=== PATIENT | female | born 1960 | race Hispanic/Latino ===

== ENCOUNTER 2017-06-26 13:41 | Outpatient (CLI) | payer BC | END 2017-06-26 13:42 | disposition home or self-care (01) | LOC: BICBD 13:41 | PROVIDERS: ATTEND Internal Medicine Rheumatology | DX: Z13.820 Encounter for screening for osteoporosis (principal) | CPT/HCPCS: 77080 ==

== ENCOUNTER 2018-04-15 12:36 | Outpatient (CLI) | payer BC | END 2018-04-15 12:37 | disposition home or self-care (01) | LOC: BICMAMMO 12:36 | PROVIDERS: ATTEND Family Medicine | DX: Z12.31 Encounter for screening mammogram for malignant neoplasm of breast (principal) | CPT/HCPCS: 77063; 77067 ==

== ENCOUNTER 2018-04-16 07:24 | Day surgery (SDC) | payer BC ==
[2018-04-15 12:20] VITALS: BMI 27.8
[2018-04-16 08:26] LABS: INR-International Normal Ratio 0.9; PTT 27.2 SEC (22.9-36.1); Prothrombin Time 12.7 SEC (12.0-14.7)
[2018-04-16] MEDS ORDERED: Midazolam HCl 2 mg/2 ml Vial ONE (09:03)
[2018-04-16] MEDS ORDERED: Lidocaine 1% PF 5 ML VIAL ONE (09:04)
[2018-04-16] MEDS ORDERED: Sodium Bicarbonate 2.5 MEQ/5 ML VIAL ONE (09:04)
[2018-04-16] MEDS ORDERED: Fentanyl 100 MCG/2 ML VIAL ONE (09:04)
--- NOTE | 2018-04-16 11:42 | ULT ---
ULTRASOUND GUIDED HEPATIC BIOPSY: Clinical history: Alkaline phosphonate elevation, abnormal LFTs, history of abdominal pain. PROCEDURE: Informed consent was obtained. Patient was escorted to the procedural suite and placed in a supine po sition. The liver was imaged sonographically and a biopsy approach was planned. A substernal approach was performed after standard sterile prepping and draping and topical anesthesia was achieved. The p atient was administered conscious sedation by the radiology nurse Oksana Bob, and monitored in st able condition throughout the duration of the procedure. Conscious sedation time: 45 minutes of conscious sedation was performed and monitored during the proc edure. Using a standard biopsy kit (18 gauge) 2 core specimens of the left hepatic lobe were acquired under real-time sonography without complication. Patient tolerated the procedure well. Post procedural imag ing reveals no evidence of unexpected finding. Patient was transferred to radiology holding and monit ored in stable condition prior to discharge with a family member. IMPRESSION: Technically successful ultrasound guided hepatic biopsy. Biology results are pending. POS: [facility]
[2018-04-16 12:14] VITALS: BP 124/69; TEMP 97.2
== END 2018-04-16 11:10 | disposition home or self-care (01) ==
LOC: ULT 07:24
PROVIDERS: ATTEND Internal Medicine
PROC: 0FB23ZX Excision of Left Lobe Liver, Percutaneous Approach, Diagnostic (ICD-10-PCS; principal; 2018-04-16)
DX: R74.8 Abnormal levels of other serum enzymes (principal); R94.5 Abnormal results of liver function studies; Z79.51 Long term (current) use of inhaled steroids; Z79.810 Long term (current) use of selective estrogen receptor modulators (SERMs); Z79.899 Other long term (current) drug therapy; Z88.0 Allergy status to penicillin; Z88.2 Allergy status to sulfonamides; Z88.8 Allergy status to other drugs, medicaments and biological substances
CPT/HCPCS: 47000; 76942; 85610; 85730; 88307; 88313; 88321; 90471; 90686; G0008; J2001; J2250; J3010

== ENCOUNTER 2018-06-22 11:36 | Emergency (ER) | payer BC ==
[2018-06-22 12:07] LABS: #Eosinphils 0.2 thou/uL (0.0-0.7); #Lymphocytes 2.6 thou/uL (1.20-3.40); #Monocytes 0.5 thou/uL (0.11-0.59); #Neutrophils 3.7 thou/uL (1.40-6.50); %Basophils 0.7 % (0.0-1.0); %Eosinophils 3.3 % (0.0-10.0); %Lymphocytes 36.6 % (21.0-51.0); %Monocytes 6.4 % (0.0-10.0); %Neutrophils 52.9 % (42.0-75.0); Hemoglobin 13.7 g/dL (12.0-16.0); Mean Corpuscular HGB CONC 31.6 g/dL (32.0-36.0); Mean Corpuscular Hemoglobin 29.4 pg (27.0-31.0); Platelet Count 277 thou/uL (130-400); RBC Distribution Width 12.5 % (11.5-14.5); Red Blood Cell (RBC) Count 4.65 mill/uL (4.20-5.40)
[2018-06-22 12:24] LABS: ALT (SGPT) 55 U/L (8-55); AST (SGOT) 53 U/L (5-34); Albumin 3.9 g/dL (3.5-5.0); Alkaline Phosphatase 545 U/L (40-150); Anion Gap 18 mmol/L (10-20); BUN (Urea Nitrogen) 22 mg/dL (9.8-20.1); Bilirubin, Total 0.5 mg/dL (0.2-1.2); CK (CPK) 19 U/L (29-168); Calc. Creatinine Clearance 0 mL/min (70-130); Calcium 9.6 mg/dL (7.8-10.44); Carbon Dioxide 16 mmol/L (22-29); Chloride 105 mmol/L (98-107); Estimated GFR-MDRD 65; Globulin 4.3 g/dL (2.4-3.5); Glucose 136 mg/dL (70-105); Potassium 3.7 mmol/L (3.5-5.1); Protein, Total 8.2 g/dL (6.0-8.3); Sodium 135 mmol/L (136-145)
--- NOTE | 2018-06-22 13:26 | RAD ---
PA AND LATERAL CHEST: Date: 06/22/18 HISTORY: Chest pain with shortness of breath and radiating to left arm. Dyspnea. COMPARISON: None available. FINDINGS: Cardiac silhouette and pulmonary vasculature are within normal limits. Calcified granuloma is seen in the right middle lobe. The lungs are otherwise clear. Osseous structures are intact. IMPRESSION: No acute cardiopulmonary process. POS: [facility]
== END 2018-06-22 15:15 | disposition home or self-care (01) ==
LOC: ERS 11:36
DX: R07.89 Other chest pain (principal); D64.9 Anemia, unspecified; M35.9 Systemic involvement of connective tissue, unspecified; Z79.899 Other long term (current) drug therapy
CPT/HCPCS: 36415; 71046; 80053; 82550; 84484; 85025; 93005

== ENCOUNTER 2018-06-30 15:04 | Outpatient (CLI) | payer BC ==
--- NOTE | 2018-06-30 16:05 | BD ---
BONE DENSITOMETRY USING DEXA 06/30/18 HISTORY: Postmenopausal screening for osteoporosis. Lumbar Spine: BMD (g/cm2) T-Score: Z-Score: L1 0.649 -3.1 -2.0 L2 0.681 -3.2 -2.0 L3 0.621 -4.2 -3.0 L4 0.582 -4.4 -3.1 L1-L4 0.631 -3.8 -2.6 Femoral Neck: 0.597 -2.3 -1.2 Total Femur: 0.805 -1.1 -0.3 Impression: Osteoporosis. POS: OFF
== END 2018-06-30 15:05 | disposition home or self-care (01) ==
LOC: BICMAMMO 15:04
PROVIDERS: ATTEND Internal Medicine Rheumatology
DX: M81.0 Age-related osteoporosis without current pathological fracture (principal)
CPT/HCPCS: 77080

== ENCOUNTER 2018-11-19 08:38 | Outpatient (CLI) | payer BC ==
--- NOTE | 2018-11-19 09:30 | ULT ---
ULTRASOUND ABDOMEN COMPLETE: Date: 11/19/18 INDICATION: History of cirrhosis. TECHNIQUE: [place]te-scale ultrasound evaluation of the liver, gallbladder, spleen, pancreas, common bile duct, kidne ys, abdominal aorta, and inferior vena cava (IVC). FINDINGS: No focal hepatic lesion or acute gallbladder pathology. Spleen and kidneys are unremarkable. No ascit es. No abnormal biliary ductal dilatation. Imaged IVC and aorta are grossly unremarkable. The imaged portions of the pancreas are unremarkable. IMPRESSION: No acute intra-abdominal pathology. POS: C
== END 2018-11-19 08:39 | disposition home or self-care (01) ==
LOC: BICULT 08:38
PROVIDERS: ATTEND Internal Medicine
DX: K74.3 Primary biliary cirrhosis (principal); R10.11 Right upper quadrant pain
CPT/HCPCS: 36415; 76700; 80053; 80061; 82105; 82306; 82607; 82728; 82746; 83540; 83550; 84446; 84590; 84630; 85025; 85610

== ENCOUNTER 2020-08-11 14:48 | Outpatient (CLI) | payer BC | END 2020-08-11 14:49 | disposition home or self-care (01) | LOC: BICMAMMO 14:48 | PROVIDERS: ATTEND Internal Medicine Rheumatology | DX: M81.0 Age-related osteoporosis without current pathological fracture (principal); M85.89 Other specified disorders of bone density and structure, multiple sites | CPT/HCPCS: 77080 ==

== ENCOUNTER 2021-03-12 12:56 | Outpatient (CLI) | payer BC | END 2021-03-12 12:57 | disposition home or self-care (01) | LOC: ULT 12:56 | PROVIDERS: ATTEND Internal Medicine | DX: M34.9 Systemic sclerosis, unspecified (principal); R06.02 Shortness of breath | CPT/HCPCS: 71046; 93306 ==

== ENCOUNTER 2021-04-04 14:29 | Outpatient (CLI) | payer BC | END 2021-04-04 14:30 | disposition home or self-care (01) | LOC: BICMAMMO 14:29 | PROVIDERS: ATTEND Nurse Practitioner Family | DX: Z12.31 Encounter for screening mammogram for malignant neoplasm of breast (principal) | CPT/HCPCS: 77063; 77067 ==

== ENCOUNTER 2021-12-19 08:07 | Outpatient (CLI) | payer BC | END 2021-12-19 08:08 | disposition home or self-care (01) | LOC: ULT 08:07 | PROVIDERS: ATTEND Internal Medicine | DX: K74.3 Primary biliary cirrhosis (principal); K74.60 Unspecified cirrhosis of liver | CPT/HCPCS: 76700 ==

== ENCOUNTER 2022-07-22 08:46 | Outpatient (CLI) | payer BC | END 2022-07-22 08:47 | disposition home or self-care (01) | LOC: ULT 08:46 | PROVIDERS: ATTEND Internal Medicine | DX: K74.3 Primary biliary cirrhosis (principal); K21.9 Gastro-esophageal reflux disease without esophagitis; K76.89 Other specified diseases of liver | CPT/HCPCS: 76700 ==

== ENCOUNTER 2022-11-22 15:23 | Outpatient (CLI) | payer BC | END 2022-11-22 15:24 | disposition home or self-care (01) | LOC: BICMAMMO 15:23 | PROVIDERS: ATTEND Family Medicine | DX: Z12.31 Encounter for screening mammogram for malignant neoplasm of breast (principal) | CPT/HCPCS: 77063; 77067 ==

== ENCOUNTER 2023-04-28 16:36 | Emergency (ER) | payer BC ==
[2023-04-28] MEDS ORDERED: Dexamethasone 10 MG/ML VIAL ONE (17:55)
[2023-04-28 18:21] LABS: #Basophils 0.1 thou/uL (0.0-0.2); #Eosinphils 0.3 thou/uL (0.0-0.7); #Monocytes 0.6 thou/uL (0.11-0.59); #Neutrophils 3.9 thou/uL (1.40-6.50); %Basophils 1.1 % (0.0-1.0); %Eosinophils 3.1 % (0.0-10.0); %Lymphocytes 39.6 % (21.0-51.0); %Monocytes 7.7 % (0.0-10.0); %Neutrophils 48.1 % (42.0-75.0); Hematocrit 42.3 % (36.0-47.0); Hemoglobin 13.9 g/dL (12.0-16.0); Mean Corpuscular HGB CONC 32.9 g/dL (32.0-36.0); Mean Corpuscular Volume 91.4 fl (78.0-98.0); Mean Platelet Volume 11.2 fL (7.4-10.4); Platelet Count 201 10x3/uL (130-400); RBC Distribution Width 13.4 % (11.5-14.5); Red Blood Cell (RBC) Count 4.63 mill/uL (4.20-5.40); White Blood Cell (WBC) Count 8.1 10x3/uL (4.8-10.8)
[2023-04-28 18:55] LABS: ALT (SGPT) 30 U/L (8-55); AST (SGOT) 33 U/L (5-34); Albumin 4.3 g/dL (3.4-4.8); Alkaline Phosphatase 260 U/L (40-110); Anion Gap 14 mmol/L (10-20); BUN (Urea Nitrogen) 25 mg/dL (9.8-20.1); Bilirubin, Total 0.4 mg/dL (0.2-1.2); Calc. Creatinine Clearance 0 mL/min (70-130); Calcium 9.4 mg/dL (7.8-10.44); Carbon Dioxide 21 mmol/L (23-31); Chloride 107 mmol/L (98-107); Estimated GFR 55; Globulin 3.7 g/dL (2.4-3.5); Glucose 109 mg/dL (80-115); Lipase 75 U/L (8-78); Potassium 4.1 mmol/L (3.5-5.1); Sodium 138 mmol/L (136-145)
== END 2023-04-28 19:13 | disposition home or self-care (01) ==
LOC: ERS 16:36
DX: L29.9 Pruritus, unspecified (principal); K74.3 Primary biliary cirrhosis
CPT/HCPCS: 36415; 80053; 82140; 83690; 85025; 96372; 99283; J1100

== ENCOUNTER 2023-11-24 15:31 | Outpatient (CLI) | payer BC | END 2023-11-24 15:32 | disposition home or self-care (01) | LOC: BICMAMMO 15:31 | PROVIDERS: ATTEND Family Medicine | DX: Z12.31 Encounter for screening mammogram for malignant neoplasm of breast (principal) | CPT/HCPCS: 77063; 77067 ==

== ENCOUNTER 2024-07-08 07:46 | Outpatient (CLI) | payer BC | END 2024-07-08 07:47 | disposition home or self-care (01) | LOC: BICULT 07:46 | PROVIDERS: ATTEND Physician Assistant Medical | DX: K74.3 Primary biliary cirrhosis (principal); R94.5 Abnormal results of liver function studies; K76.89 Other specified diseases of liver | CPT/HCPCS: 76705 ==

== ENCOUNTER 2025-04-21 14:42 | Outpatient (CLI) | payer BC | END 2025-04-21 14:43 | disposition home or self-care (01) | LOC: BICMAMMO 14:42 | PROVIDERS: ATTEND Family Medicine | DX: Z12.31 Encounter for screening mammogram for malignant neoplasm of breast (principal) | CPT/HCPCS: 77063; 77067 ==